=== PATIENT | male | born 1985 | race Caucasian/White ===

== ENCOUNTER 2020-07-20 12:14 | Emergency (ER) | payer OTHER ==
[~2020-07-20] VITALS: Ht 167.6 cm; Wt 108.9 kg
[2020-07-20 13:19] LABS: ABSOLUTE NEUTROPHILS 1.5 thou/uL (1.4-8.2); BASOPHILS 1.1 % (0.0-2.0); EOSINOPHILS 3.4 % (0.0-3.0); HEMATOCRIT 42.1 % (42.0-52.0); HEMOGLOBIN 14.3 gm/dL (14.0-18.0); LYMPHOCYTES 37.3 % (24.0-44.0); MCH 31.4 pg (26.0-34.0); MCHC 34.1 g/dL (28.0-37.0); MCV 92.2 fL (80.0-100.0); MONOCYTES 12.7 % (1.0-8.0); PLATELET COUNT 236 thou/uL (150-400); POLYS 45.5 % (36.0-66.0); RBC 4.57 mil/uL (4.50-6.00); RDW 14.1 % (10.5-14.5); WBC 3.3 thou/uL (4.0-11.0)
[2020-07-20 13:23] LABS: ANION GAP 7 mmol/L (7-16); BUN 10 mg/dL (7-18); CALCIUM 8.9 mg/dL (8.5-10.1); CHLORIDE 104 mmol/L (98-107); CO2 28 mmol/L (21-32); GLUCOSE 97 mg/dL (74-106); SODIUM 139 mmol/L (136-145)
[2020-07-20 13:34] LABS: ALBUMIN 3.7 g/dL (3.4-5.0); SGOT 13 U/L (15-37); SGPT 23 U/L (16-63); TOTAL BILIRUBIN 0.4 mg/dL (0.2-1.0); TOTAL PROTEIN 7.1 g/dL (6.4-8.2); TROPONIN-I <0.06 ng/mL (<0.06)
[2020-07-20 15:36] VITALS: BP 140/83
[2020-07-20] MEDS ORDERED: CARAFATE 1 GM TA1 G1 PO (15:37)
[2020-07-20] MEDS ORDERED: OMEPRAZOLE40 MG PO (15:37)
--- NOTE | 2020-07-20 15:53 | EKG ---
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
[2020-07-20 16:01] LABS: URINE BILIRUBIN NEGATIVE (Negative); URINE BLOOD NEGATIVE (Negative); URINE CLARITY CLEAR; URINE COLOR YELLOW; URINE GLUCOSE-RANDOM* NEGATIVE (Negative); URINE KETONES NEGATIVE (Negative); URINE LEUKOCYTES-REFLEX NEGATIVE (Negative); URINE NITRITE-REFLEX NEGATIVE (Negative); URINE PROTEIN (DIPSTICK) NEGATIVE (Negative); URINE SPECIFIC GRAVITY <= 1.005 (1.005-1.035); URINE UROBILINOGEN 0.2 E.U./dl (0.2-1.0)
== END 2020-07-20 15:36 | disposition home or self-care (01) ==
LOC: ER 12:14
PROVIDERS: Student in an Organized Health Care Education/Training Program
DX: K29.70 Gastritis, unspecified, without bleeding (principal)

== ENCOUNTER 2021-02-24 08:40 | Emergency (ER) | payer OTHER ==
[~2021-02-24] VITALS: Ht 167.6 cm; Wt 104.3 kg
[~2021-02-24 08:40] MED LIST: CARAFATE 1 GM TA1 G1 PO; OMEPRAZOLE40 MG PO
[2021-02-24 08:44] VITALS: BP 132/82
== END 2021-02-24 10:10 | disposition home or self-care (01) ==
LOC: ER 08:40
DX: U07.1 COVID-19 (principal); Z79.899 Other long term (current) drug therapy